=== PATIENT | female | born 1945 | race Caucasian/White ===

== ENCOUNTER 2016-05-21 05:42 | Day surgery (SDC) | payer MEDICARE, OTHER ==
[~2016-05-21] VITALS: Ht 162.6 cm; Wt 100.0 kg
[2016-05-21] MEDS: Lactated Ringer's 1,000 ML IV SCH ×2 (05:34→08:04)
[~2016-05-21 05:42] MED LIST: ACET325T51 PO; CALCITRIOL PO; CYCL5TAB PO; GLUC100016 PO; HYDR-3825 PO; HYG25 PO; IMI25 PO; LISI-571 PO; LORA0.5T PO; OXYB5TAB10 PO; OXYC-465 PO; TAZA30CR TP
[2016-05-21] MEDS ORDERED: Dexamethasone 4 mg/mL Inj ONE (05:43)
[2016-05-21] MEDS ORDERED: fentaNYL-PF 50 mCg/mL 2 mL Inj ONE (05:43)
[2016-05-21] MEDS ORDERED: EPHEDrine/NS 5 mg/mL 5 mL Syringe ONE (05:43)
[2016-05-21] MEDS ORDERED: Lidocaine PF 1% 30 mL Inj ONE (05:43)
[2016-05-21] MEDS ORDERED: Propofol 10,000 mCg/mL 20 mL Inj ONE (05:43)
[2016-05-21] MEDS ORDERED: Ondansetron 2 mg/mL 2 mL Inj ONE (05:43)
[2016-05-21] MEDS ORDERED: Clindamycin Inj 600 MG in IV Premix 1 EACH IV SCH (06:00)
[2016-05-21 06:24] VITALS: BP 135/74; PULSE 74; RESP 14; O2SAT 97
--- NOTE | 2016-05-21 07:13 | PCM.HPANE ---
Patient Data Surgeon Admitting Provider: Attending Provider:Toy Myers DPM Primary Care Physician:Barbara Diaz PA-C Other Provider:Timmy Tian Anesthesia Reason for Visit Right Foot Bunion, Hallux Valgus, Hammertoe Ht/WT & BMI Height (Feet): 5 Height (Inches): 4.00 Weight (Kilograms): 100.000 Body Mass Index 37.00 Allergies Coded Allergies: No Known Allergies (Unverified , 05/19/16) Past Anesthesia History Anesthesia History: Denies:: Anesthesia Reactions, Malignant Hyperthermia Diabetes History Hx Diabetes?: No Current Bedside Blood Glucose: 112 MRSA MRSA: No Medications Hypertension Medication: Yes (CHLORTHALIDONE,LISINOPRIL) Home Meds Incl Beta Анна: No Reported Medications oxyCODONE-Acetaminophen 7.5-325 mg 1 Each Tablet1 Tab PO Q4H PRN For Pain Ref 0 POSTOP 05/19/16 Tazarotene (Tazorac)30 Gm Cream..g.1 Applic TP DAILY 0.05% 05/19/16 Sumatriptan (Imitrex)25 Mg [id number] Mg PO PRN MR IN 2 HRS PRN 05/19/16 Oxybutynin Chloride 5 Mg Tablet5 Mg PO BID Ref 0 05/19/16 Lorazepam 0.5 Mg Tablet0.5 Mg PO TID PRN For Anxiety Ref 0 05/19/16 Lisinopril 5 Mg Tablet5 Mg PO DAILY #30 TABLET Ref 0 05/19/16 Glucosamine Sulfate 2Kcl (Glucosamine)1,000 Mg Tablet1,500 Mg PO DAILY 05/19/16 Cyclobenzaprine 5 Mg Tablet5 Mg PO TID PRN Spasm 05/19/16 [Calcitriol] No Conflict Check0.5 Mcg PO DAILY 05/19/16 Acetaminophen 325 Mg [id number],300 Mg PO Q8H PRN For Pain Ref 0 05/19/16 Hydrocodone-Acetaminophen 7.5-325 mg 1 Each Tablet1 Tablet PO Q6H PRN For Pain Ref 0 05/19/16 Chlorthalidone 25 Mg [id number] Mg PO DAILY #30 TABLET 05/19/16 Discontinued Scripts Acetaminophen/Codeine 300-30mg (Tylenol/Codeine #3)1 Each Tablet1-2 Tablet PO Q4H PRN Pain #30 TABLET Ref 0 Prov:Gera Lambert DO 08/07/15 History History of ENT Problems?: Yes HEENT History: Positive for:: Cataracts (S/P EXTRACTION) Hx of Heart Problems?: Yes Cardiovascular History: Positive for:: Hypertension (HYPERLIPIDEMIA) Denies:: Congestive Heart Failure Heart Murmur Hx of Respiratory Problem?: Yes Respiratory History: Positive for:: Tuberculosis (EXPOSURE AT <3 YEARS OF AGE. TESTED 2015:NEG) Denies:: Use of C-PAP Machine Hx Neurologic Problems?: Yes Neurological History: Positive for:: Headaches Hx of GI Problems?: Yes Gastrointestinal History: Positive for:: Gall Bladder Disease (S/P SIMONA) Hx of Problems?: Yes Female Hx: Denies:: Currently Skin History: Positive for:: History Skin Disorders? (PSORIASIS) Denies:: Pressure Ulcers Hx Musculoskeletal Problems?: Yes Musculoskeletal History: Positive for:: Musculoskeletal Trauma (S/P LT ACL RPR ,LT KNEE MENISECTOMY,LT ROTATOR CUFF) Osteoarthritis Denies:: Back Injury (C/OF LOWER BACK PAIN) Hx of Psycho/Social Problems?: Yes Psycho Social History: Positive for:: Anxiety (W/ HX OF PANIC ATTACKS) Hx Depression Hx Surgeries?: Yes (L ACL,L MENISCUS,L ROTATOR CUFF,BTL,CATARACT,SIMONA,EXC LIPOMA RT SHOULDER) Hx Any Other Health Problems?: Yes Other History: Denies:: Cancer Endocrine Disease Hospitalization Thyroid Disease Hx Diabetes: NoBedside Blood Glucose: 112 Hx Alcohol Use: Yes (VERY RARE)Hx Substance Use: No Smoking Status: Never Smoker Have You Smoked inLast 12 mo: No Stop/Bang S-Snoring: Do You Snore Loudly: No T-Tired: feel tired, fatigued: No O-Obsered: Observed not breath: No P-Blood Pressure: treated: Yes B- Body Mass Index > 35 kg/m2: Yes A- Age over 50: Yes N- Neck Large Circumference: No G- Gender Male: No LION Total Score: 3 LION Risk Assessment: Low Risk, <3 Yes Risk Assessment Category Category 1A: Patient has history of documented sleep apnea, and HAS NOT received any narcotic, sedative or anesthesia administration during this stay. Category 1B: Patient has history of documented sleep apnea, and HAS received any narcotic , sedative or anesthesia administration during this stay Category 2: Patient has SUSPECTED Obstructive Sleep Apnea, and HAS received any narcotic , sedative or anesthesia administration during this stay. Category 3: Patient has SUSPECTED Obstructive Sleep Apnea and HAS NOT received narcotic, sedative or anesthesia administration during this stay. Category 4: Outpatient in Procedural Areas with known sleep apnea or who screen positive for High Risk via the STOP/BANG questionnaire. Exam Exam Vital Signs Vital Signs Date Time Temp Pulse Resp B/P Pulse Ox O2 Delivery O2 Flow Rate FiO2 05/21/16 06:24 36.1 74 14 135/74 97 Room Air General Appearance: Alert, Oriented X3, Cooperative, No Acute Distress HEENT/AIRWAY: MP 1, Neck Movement (FROM), Mouth Opening (3-4fb) Lungs: Normal Air Movement Heart: Exam Unremarkable Meds/Labs/Diagnostics Admission Meds Current Medications Lactated Ringer's (Lr) 1,000 ml @ 120 mls/hr Q8H20M IV Last administered on t 05:34; Start 05/21/16 at 05:00; Stop 05/21/16 at 13:19 Bedside Blood Glucose: 112 Plan Impression Patient chart reviewed, patient interviewed and anesthestic plan with risks, benefits, and alternatives discussed, and informed consent obtained. NPO Status: 05/20 at 1800 ASA Physical Status: ASA2 Mod Systemic Disease Anesthetic Plan: GA Bene/Risks/Altern/Consents: Yes HP Complete Prior to Induction: Yes Garrett Yañez MD May 21, 2016 07:13
[2016-05-21] MEDS ORDERED: Bupivacaine-MPF 0.5% 30 mL Inj INFILTRATE ONE (08:02)
[2016-05-21] MEDS ORDERED: Lactated Ringer's 500 ML IV PRN (08:08)
[2016-05-21] MEDS ORDERED: Lactated Ringer's 1,000 ML IV SCH (08:08)
[2016-05-21] MEDS ORDERED: MetoCLOpramide 5 mg/mL 2 mL Inj IVPUSH PRN (08:10)
[2016-05-21] MEDS ORDERED: Dexamethasone 4 mg/mL Inj IVPUSH PRN (08:10)
[2016-05-21] MEDS ORDERED: Phenylephrine 10,000 mCg/mL Inj IVPUSH PRN (08:10)
[2016-05-21] MEDS ORDERED: Albuterol-Ipratropium 3 mL Inhalation Solution NEB PRN (08:10)
[2016-05-21] MEDS ORDERED: EPHEDrine Sulfate 50 mg/mL Inj IVPUSH PRN (08:10)
[2016-05-21] MEDS ORDERED: HYDROmorphone 1 mg/mL Inj IVPUSH PRN (08:10)
[2016-05-21] MEDS ORDERED: Ondansetron 2 mg/mL 2 mL Inj IVPUSH PRN (08:10)
[2016-05-21] MEDS ORDERED: fentaNYL-PF 50 mCg/mL 2 mL Inj IVPUSH PRN (08:10)
[2016-05-21] MEDS ORDERED: Bacitracin Ointment Packet TOPICAL ONE (10:03)
[2016-05-21 10:13] VITALS: BP 154/73; PULSE 84; RESP 10; O2SAT 94
--- NOTE | 2016-05-21 10:17 | PCM.ANEP2 ---
Post Anesthesia Evaluation ASA/CMS Post Anesthesia VS in Patient's Normal Range?: Yes Resp Stable; Airway Patent?: Yes CV Function & Hydration Stable: Yes Mental Status Recovered?: Yes Pain control Satisfactory?: Yes N/V Control Satisfactory?: Yes Garrett Yañez MD May 21, 2016 10:17
--- NOTE | 2016-05-21 10:17 | PCM.ANEP1 ---
Post Anesthesia Phase 1 PACU Phase 1 Assessment Vital Signs see anesthesia record Vital Signs Date Time Temp Pulse Resp B/P Pulse Ox O2 Delivery O2 Flow Rate FiO2 05/21/16 06:24 36.1 74 14 135/74 97 Room Air Anesthetic Administered: GA Level of Alertness: Sleepy, easy to arouse BETTS's with Equal Strength: Yes Pain: No Nausea or Vomiting: No Oxygen Delivery: Room Air Lungs: Normal Air Movement Dermatome Level: Full Sensation Garrett Yañez MD May 21, 2016 10:17
[2016-05-21 10:20] VITALS: BP 139/64; PULSE 86; RESP 12; O2SAT 97
[2016-05-21 10:25] VITALS: BP 136/74; PULSE 88; RESP 14; O2SAT 95
--- NOTE | 2016-05-21 10:26 | PCM.PODPO ---
Podiatry Operative Report Date of Service: May 21, 2016 Date of Service May 21, 2016 Pre Operative Diagnosis Hallux abductovalgus deformity, hammertoe second digit, plantar plate rupture second metatarsal phalangeal joint right foot Post Operative Diagnosis Same Procedure #1 Ricci bunion correction right foot #2 Cheko osteotomy hallux right foot #3 Pipo osteotomy with repair of plantar plate second metatarsophalangeal joint right foot #4 Hammertoe correction with arthrodesis PIPJ second digit right foot Surgeon Surgeon: Toy Myers DPM Assistants: None Indication for Procedure Same Findings High grade tear of plantar plate at the phalangeal insertion site Details of Procedure Patient was placed on the table in the supine position and surgical timeout observed. Upon initiation of general anesthesia the right forefoot was anesthetized utilizing partially 10 cc 0.5% Marcaine plain. A well-padded pneumatic ankle tourniquet was applied and the extremity prepped and draped in usual aseptic manner. Exsanguination was achieved utilizing an Esmarch bandage , the cuff was inflated and attention directed to the medial first metatarsal phalangeal joint. An approximately 6 cm curvilinear incision was made and deepened via sharp and blunt dissection with care taken to cauterize superficial vessels. A curvilinear periosteal and capsular incision was made exposing the hypertrophic medial eminence of the first metatarsal head which was resected. Next a chevron -shaped osteotomy with its apex oriented distally and dorsal arm longer than plantar was performed in the first metatarsal head and neck and the capital fragment displaced 4-5 mm. Fixation was achieved utilizing 22.0 cortical screws via lag technique with good distal screw purchase and compression of the osteotomy noted. The remaining medial bony shelf was remodeled. The forefoot was loaded and there was felt to be an excessive amount of residual valgus malalignment and incision made to proceed with the Cheko osteotomy of the phalanx. A second incision was made 3 cm in length dorsomedial aspect of the proximal phalanx medial to the extensor hallucis longus tendon. This incision was deepened via sharp and blunt dissection with care taken to cauterize superficial vessels. A linear periosteal incision was made exposing the dorsal aspect of the proximal phalanx. An obliquely oriented osteotomy was performed with the apex oriented proximal lateral and base distal medial. A 2 mm wedge of bone was removed, the osteotomy was feathered closed correcting the residual valgus deformity and fixated utilizing 2 2.0 cortical screws via lag technique with good distal screw purchase and compression of the osteotomy. The lateral cortex was left intact. The site was copiously irrigated, periosteal and capsular tissues repaired with 3-0 Vicryl, subcutaneous tissues with 4-0 Vicryl skin with 4-0 Prolene. Attention was then directed to the dorsum of the second metatarsal phalangeal joint. An approximately 7 cm dorsal linear incision was made from the distal second metatarsal to the intermediate phalanx of the second toe. The incision was deepened via sharp and blunt dissection with care taken to cauterize superficial vessels. A tendon splitting incision was made at the second MPJ and subperiosteal dissection performed exposing the joint. A Pipo osteotomy was performed and the capital fragment displaced proximally 12 mm and fixated. A pin was placed in proximal phalanx and a distractor utilized to expose the joint. Inspection of the plantar aspect of the joint revealed a high-grade tear of the plantar plate and its attachment to the proximal phalangeal base. Approximately 2 mm of the distal plate was resected. Next the fixation holes were placed in the proximal phalangeal base. Utilizing a Alert Logic suture passer the plantar plate was captured, sutures were brought through the holes at the base of the phalanx. The metatarsal pin was removed, the second metatarsal head was brought out to length and fixated utilizing 2 Arthrex self-tapping cortical snap off screws. The FiberWire sutures were passed through the base of the proximal phalanx and tied at its dorsal aspect with the toe held in plantarflexion and the base displaced plantar holden on the second metatarsal head. Digital Chu's was negative for residual laxity. Attention was then directed to the PIPJ. Dissection was performed at the PIPJ level a linear tendon and capsular splitting incision made exposing the joint which was resected utilizing recommendation. The arthrodesis site was feathered closed utilizing reciprocal planing. Fixation was achieved utilizing a single 0.045 inch K wire which was inserted into the intermediate phalangeal base exiting the toe and then inserted retrogradely crossing the arthrodesis site to the level of the proximal phalangeal base but did not cross the metatarsal phalangeal joint. There was noted to be good bone to bone coaptation at the arthrodesis site. The K wire was cut and bent and capped distally. Site was copiously irrigated capsular tissues were repaired with 3-0 Vicryl subcutaneous tissues with 4-0 Vicryl skin with 4-0 Prolene. The tourniquet had been released and normal perfusion returning promptly, mild to moderate postoperative bleeding was stayed with direct pressure. Additional local anesthetic consisting of 7 cc 0.5 % Marcaine was infiltrated, antibiotic ointment and Adaptic dressing and mildly compressive bandage applied. The patient was extubated uneventfully and left the operating suite apparently satisfactory condition. There were no complications. Grafts, Implants: Implants-See Implant Record Complications There were no periprocedural complications identified. Condition Stable Anesthetic Administered: GA Drains: None Catheters: None Output, Estimated Blood Loss: 20 Blood Admin during surgery: No Surgical Cast or Splint: Post-op Boot Surgical Specimen Removed: No Specimen sent to Pathology: No Post Operative Plan Patient to be discharged to home, postop instructions have been reviewed and return appointment made 5 days postop Toy Myers DPM May 21, 2016 10:26
[2016-05-21 10:40] VITALS: BP 150/80; PULSE 81; RESP 16; O2SAT 96
[2016-05-21 11:47] VITALS: PULSE 85; O2SAT 95
== END 2016-05-21 23:59 | disposition home or self-care (01) ==
LOC: SAS 05:42
PROVIDERS: ATTEND Podiatrist
DX: M21.611 Bunion of right foot (principal); M20.11 Hallux valgus (acquired), right foot; M20.41 Other hammer toe(s) (acquired), right foot; M77.51 Other enthesopathy of right foot and ankle; I10 Essential (primary) hypertension; E78.5 Hyperlipidemia, unspecified; F41.8 Other specified anxiety disorders; M19.90 Unspecified osteoarthritis, unspecified site; E66.9 Obesity, unspecified; L40.9 Psoriasis, unspecified
CPT/HCPCS: 28299; 28308; 36415; 80048; C1713; J0690; J1100; J2250; J2405; J3010; J7120